=== PATIENT | female | born 1960 | race Caucasian/White ===

== ENCOUNTER 2023-01-30 12:32 | Emergency (ER) | payer OTHER, SELFPAY ==
--- NOTE | ~2023-01-30 | CT_ITS ---
EXAMINATION: CT cervical spine wo con DATE: 01/30/2023 INDICATION: Head injury. TECHNIQUE: Computed tomography (CT) of the cervical spine was performed without intravenous contrast. Automated exposure control and iterative reconstruction technique were employed. The dose-length pro duct was 395 mGy-cm. COMPARISON: None FINDINGS: There is mild emphysema. There is kyphosis of cervical spine. There is a Schmorl's node of inferior endplate of C7. There is mildly decreased disc height at C3-C4 and severely decreased disc h eight from C4-C5 through C7-T1 with endplate remodeling. The following disc levels are specifically d iscussed: C2-C3: There is mild bilateral uncovertebral joint osteoarthritis. There is severe right and moderate left facet joint osteoarthritis. There is mild right neural foraminal stenosis. There is no central canal stenosis. C3-C4: There is mild bilateral uncovertebral joint osteoarthritis. There is severe bilateral facet hakeem int osteoarthritis. There is mild left neural foraminal stenosis. There is no central canal stenosis. C4-C5: There is severe bilateral uncovertebral joint osteoarthritis. There is mild bilateral facet hakeem int osteoarthritis. There is moderate bilateral neural foraminal stenosis. There is moderate central canal stenosis. There is asymmetry moderate stenosis of right lateral recess. C5-C6: There is severe bilateral uncovertebral joint osteoarthritis. There is mild bilateral facet hakeem int osteoarthritis. There is moderate bilateral neural foraminal stenosis. There is mild central jennifer l stenosis. C6-C7: There is severe bilateral uncovertebral joint osteoarthritis. There is mild bilateral facet hakeem int osteoarthritis. There is mild right and moderate left neural foraminal stenosis. There is moderat e central canal stenosis. C7-T1: There is severe bilateral uncovertebral joint osteoarthritis. There is severe bilateral facet joint osteoarthritis. There is mild bilateral neural foraminal stenosis. There is mild central canal stenosis. IMPRESSION: 1. No acute fracture. 2. Severe cervical spondylosis. Reviewed, dictated and finalized at location A.
--- NOTE | ~2023-01-30 | CT_ITS ---
EXAMINATION: CT brain wo con DATE: 01/30/2023 INDICATION: Head injury. TECHNIQUE: Computed tomography (CT) of the head was performed without intravenous contrast. The mA wa s adjusted according to patient size. Iterative reconstruction technique was employed. The dose-lengt h product was 605 mGy-cm. COMPARISON: None FINDINGS: There is no intracranial hemorrhage, acute infarction, or abnormal intracranial mass lesion . There are scattered areas of low attenuation in the cerebral white matter, which is within normal l imits for the patient's age. The ventricles are normal in size. There is a left posterior scalp hemat joann. There is mild mucosal thickening in the ethmoid sinuses. The orbits are normal. The mastoid air cells are normal. IMPRESSION: 1. Normal aging brain. Reviewed, dictated and finalized at location A. IMPRESSION: 1. Normal aging brain.
== END 2023-01-30 16:05 | disposition home or self-care (01) ==
LOC: ANHED 18:03
PROVIDERS: Emergency Provider Emergency Medicine
DX: S01.01XA Laceration without foreign body of scalp, initial encounter (principal); S09.90XA Unspecified injury of head, initial encounter; W17.89XA Other fall from one level to another, initial encounter; I10 Essential (primary) hypertension
CPT/HCPCS: 12002; 70450; 72125; 99284; A9270